=== PATIENT | female | born 2000 | race Caucasian/White ===

== ENCOUNTER 2020-12-04 14:09 | Emergency (ER) | payer MEDICAID ==
[~2020-12-04] VITALS: Ht 154.9 cm; Wt 56.2 kg
[2020-12-04 14:15] VITALS: BP_SYST 112
--- NOTE | 2020-12-04 14:15 | NUR ---
Patient to ER bed 4 to gown for evaluation. Side rails up. Report given to WANG LIM.
--- NOTE | 2020-12-04 14:30 | NUR ---
BIB SELF FROM WORK, WALKED INTO ER STEADY. RESP UNLABORED, SKIN WARM AND DRY. CLEAR MENTATION AND SPEECH. SEEN YESTERDAY AT LOCAL CLINIC FOR CELLULITIS TO GREAT TOE AND GIVEN RX. TODAY SHE EXPERIENCED INCREASE IN PAIN WITH IT RADIATING UP HER LEG.
--- NOTE | 2020-12-04 14:49 | NUR ---
DR PURCELL IN TO ASSESS. PT CALM, ALERT, COOPERATIVE
--- NOTE | 2020-12-04 14:58 | NUR ---
OFF TO ULTRASOUND
--- NOTE | 2020-12-04 15:35 | NUR ---
UP AMBULATING STEADY , SKIN WARM AND DRY
--- NOTE | 2020-12-04 16:01 | NUR ---
DR BARRIENTOS IN TO ASSESS
[2020-12-04 16:30] VITALS: BP_SYST 116
--- NOTE | 2020-12-04 16:31 | NUR ---
Patient given written and verbal discharge instructions and verbalizes understanding. ER MD discussed with patient the results and treatment provided. Patient in stable condition. ID arm band removed. IV catheter removed intact and dressing applied, no active bleeding. Patient educated on pain management and to follow up with PMD. Pain Scale 1/10 Opportunity for questions provided and answered. Medication side effect fact sheet provided.
== END 2020-12-04 16:30 | disposition home or self-care (01) ==
LOC: SED 14:09
DX: L03.032 Cellulitis of left toe (principal)
CPT/HCPCS: 93971; 99284

== ENCOUNTER 2021-08-13 07:14 | Emergency (ER) | payer MEDICAID, SELFPAY ==
[~2021-08-13] VITALS: Ht 157.5 cm; Wt 54.4 kg
[2021-08-13 07:50] VITALS: BP_SYST 115
[2021-08-13 08:56] LABS: BILIRUBIN,URINE NEGATIVE (NEGATIVE); BLOOD, URINE NEGATIVE (NEGATIVE); CLARITY/URINE CLEAR (CLEAR); COLOR,URINE YELLOW (YELLOW); GLUCOSE,URINE NEGATIVE (NEGATIVE); KETONES,URINE NEGATIVE (NEGATIVE); LEUKOCYTE ESTERASE ,URINE NEGATIVE (NEGATIVE); NITRITE, URINE NEGATIVE (NEGATIVE); PROTEIN URINE NEGATIVE (NEGATIVE); UROBILINOGEN,URINE 0.2 (0.2-1.0)
[2021-08-13] MEDS ORDERED: ONDA-8 TL (09:16)
[2021-08-13 09:25] VITALS: BP_SYST 115
== END 2021-08-13 09:25 | disposition home or self-care (01) ==
LOC: SED 07:14
DX: B34.9 Viral infection, unspecified (principal); Z20.822 Contact with and (suspected) exposure to COVID-19
CPT/HCPCS: 36415; 81003; 81025; 86710; 99283

== ENCOUNTER 2021-08-16 11:14 | Emergency (ER) | payer MEDICAID, SELFPAY ==
[~2021-08-16] VITALS: Ht 157.5 cm; Wt 54.4 kg
[~2021-08-16 11:14] MED LIST: ONDA-8 TL
--- NOTE | 2021-08-16 11:15 | NUR ---
Pt triaged and placed in tent.
--- NOTE | 2021-08-16 11:20 | NUR ---
Pt walked in to ER with c/o cough, congestion, sore throat and runny nose x4 days. Was seen here 2 days ago, -Covid, reports symptoms are getting worse. V/S stable, O2 sat, no acute distress noted.
--- NOTE | 2021-08-16 11:30 | NUR ---
ER Dr. Anthony at bedside examining patient.
[2021-08-16 11:44] VITALS: BP_SYST 118
--- NOTE | 2021-08-16 12:20 | NUR ---
Radiolgy at bedside for CXR
[2021-08-16] MEDS ORDERED: PRED20TA PO (12:39)
[2021-08-16] MEDS ORDERED: ALBU8.5H8 INH (12:39)
--- NOTE | 2021-08-16 12:50 | NUR ---
Patient given written and verbal discharge instructions and verbalizes understanding. ER MD discussed with patient the results and treatment provided. Patient in stable condition. ID arm band removed. Rx of Albuterol and Prednisone given. Patient educated on pain management and to follow up with PMD. Pain Scale 0 Opportunity for questions provided and answered. Medication side effect fact sheet provided.
[2021-08-16 12:53] VITALS: BP_SYST 118
== END 2021-08-16 12:50 | disposition home or self-care (01) ==
LOC: SED 11:14
DX: J40 Bronchitis, not specified as acute or chronic (principal); Z79.899 Other long term (current) drug therapy; Z20.822 Contact with and (suspected) exposure to COVID-19
CPT/HCPCS: 36415; 71045; 99284